=== PATIENT | female | born 1955 | race Caucasian/White ===

== ENCOUNTER 2018-05-11 22:20 | Emergency (ER) | payer MEDICARE, OTHER ==
[~2018-05-11] VITALS: Ht 165.1 cm; Wt 45.8 kg
--- NOTE | 2018-05-11 23:00 | NUR ---
patient brought in by self for left Thumb laceration
--- NOTE | 2018-05-12 00:19 | NUR ---
Patient discharged to home in stable condition. Written and verbal after care instructions given. Patient verbalizes understanding of instruction.
[2018-05-12 00:20] VITALS: BP 133/81
== END 2018-05-12 00:23 | disposition home or self-care (01) ==
LOC: ER 22:20
DX: S61.012A Laceration without foreign body of left thumb without damage to nail, initial encounter (principal); G50.0 Trigeminal neuralgia; F17.200 Nicotine dependence, unspecified, uncomplicated; F12.10 Cannabis abuse, uncomplicated; Z98.890 Other specified postprocedural states; W26.0XXA Contact with knife, initial encounter; Y93.89 Activity, other specified; Y92.89 Other specified places as the place of occurrence of the external cause; Y99.8 Other external cause status
CPT/HCPCS: 12001; 99283; A6402

== ENCOUNTER 2018-05-12 15:30 | Outpatient (CLI) | payer MEDICARE, OTHER | END 2018-05-12 23:59 | disposition home or self-care (01) | LOC: RAD 15:30 | DX: M19.071 Primary osteoarthritis, right ankle and foot (principal); M16.11 Unilateral primary osteoarthritis, right hip; M20.21 Hallux rigidus, right foot; M25.774 Osteophyte, right foot | CPT/HCPCS: 73502; 73610-TC; 73630-TC ==

== ENCOUNTER 2018-12-22 11:48 | Emergency (ER) | payer MEDICARE, OTHER ==
[~2018-12-22] VITALS: Ht 170.2 cm; Wt 65.8 kg
[2018-12-22 11:52] VITALS: BP 145/84
--- NOTE | 2018-12-22 11:55 | NUR ---
AT BEDSIDE FOR EVAL.
--- NOTE | 2018-12-22 12:19 | NUR ---
ASSISTANT SERVICE MANAGER AT BEDSIDE FOR XRAY.
--- NOTE | 2018-12-22 13:11 | NUR ---
Patient discharged to home in stable condition. Written and verbal after care instructions given. Patient verbalizes understanding of instruction.
== END 2018-12-22 13:13 | disposition home or self-care (01) ==
LOC: ER 11:51
DX: S93.491A Sprain of other ligament of right ankle, initial encounter (principal); F17.200 Nicotine dependence, unspecified, uncomplicated; Z98.890 Other specified postprocedural states; X50.1XXA Overexertion from prolonged static or awkward postures, initial encounter; Y93.42 Activity, yoga; Y92.89 Other specified places as the place of occurrence of the external cause; Y99.8 Other external cause status
CPT/HCPCS: 73610-TC

== ENCOUNTER 2019-04-08 19:07 | Emergency (ER) | payer MEDICARE, OTHER ==
[~2019-04-08] VITALS: Ht 172.7 cm; Wt 54.4 kg
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
--- NOTE | 2019-04-08 19:40 | NUR ---
KIA HERNANDEZ AGACNPBC AT THE BED SIDE
--- NOTE | 2019-04-08 19:56 | NUR ---
PT WAS PICKED UP FOR CT
--- NOTE | 2019-04-08 20:06 | NUR ---
BACK FROM CT
[2019-04-08] MEDS ORDERED: LIDOCAINE 1%-EPI 1:100,000 20 ML VIAL ONE (20:36)
[2019-04-08] MEDS ORDERED: LIDOCAINE 1%-EPI 1:100,000 50 ML VIAL IJ ONE (21:00)
--- NOTE | 2019-04-08 21:00 | NUR ---
PT RECEIVED 4 DEREK ON THE R SCALP BY KIA WHITE AT THE BED SIDE . PT TOLERATED THE PROCEDURE WELL. ATB OINTMENT APPLIET PER PA'S ORDER. NO BLEEDING NOTED NOTED/ PT CLEAR FOR D/C
--- NOTE | 2019-04-08 21:10 | NUR ---
Patient discharged to home in stable condition. Written and verbal after care instructions given. Patient verbalizes understanding of instruction.
[2019-04-08 21:16] VITALS: BP 137/77
== END 2019-04-08 21:10 | disposition home or self-care (01) ==
LOC: ER 19:13
DX: S01.01XA Laceration without foreign body of scalp, initial encounter (principal); S70.01XA Contusion of right hip, initial encounter; S50.311A Abrasion of right elbow, initial encounter; F17.200 Nicotine dependence, unspecified, uncomplicated; Z98.890 Other specified postprocedural states; W01.0XXA Fall on same level from slipping, tripping and stumbling without subsequent striking against object, initial encounter; Y93.89 Activity, other specified; Y92.89 Other specified places as the place of occurrence of the external cause; Y99.8 Other external cause status
CPT/HCPCS: 12001; 70450; 99284; J3490 ×2

== ENCOUNTER 2019-04-08 23:00 | Emergency (ER) | payer MEDICARE, OTHER ==
[~2019-04-08] VITALS: Ht 172.7 cm; Wt 54.4 kg
[2019-04-08 23:09] VITALS: BP 148/88
--- NOTE | 2019-04-08 23:32 | NUR ---
DR ABAD AT THE BED SIDE
--- NOTE | 2019-04-08 23:37 | NUR ---
EMT AT BEDSIDE FOR WOUND CARE
--- NOTE | 2019-04-09 00:12 | NUR ---
Patient discharged to home in stable condition. Written and verbal after care instructions given. Patient verbalizes understanding of instruction.
== END 2019-04-09 00:13 | disposition home or self-care (01) ==
LOC: ER 23:03
DX: S01.01XD Laceration without foreign body of scalp, subsequent encounter (principal); W18.39XD Other fall on same level, subsequent encounter
CPT/HCPCS: 99281; A6403